=== PATIENT | female | born 1940 | race Caucasian/White ===

== ENCOUNTER 2024-12-02 11:04 | Outpatient (CLI) | payer MEDICARE, BC, SELFPAY ==
--- NOTE | 2024-12-02 11:14 | XR_ITS ---
FINAL REPORT CLINICAL HISTORY: Foot pain COMPARISON: None FINDINGS: RIGHT FOOT Three views demonstrate no acute fracture or dislocation. The joint spaces appear normal. No acute soft tissue abnormality is seen. IMPRESSION: No acute bony abnormality. Reviewed, Interpreted and Dictated by Miguelito Cardenas MD Transcribed by Zaira Rahman Authenticated and [facility][1]
--- NOTE | 2024-12-02 11:14 | XR_ITS ---
FINAL REPORT CLINICAL HISTORY: Foot pain COMPARISON: None FINDINGS: LEFT FOOT Three views demonstrate no acute fracture or dislocation. The joint spaces appear normal. No acute soft tissue abnormality is seen. IMPRESSION: No acute bony abnormality. Reviewed, Interpreted and Dictated by Miguelito Cardenas MD Transcribed by Zaira Rahman Authenticated and [facility] [place]
== END 2024-12-02 23:59 | disposition home or self-care (01) ==
LOC: RAD 11:10
PROVIDERS: PCP Nurse Practitioner Family; Visit Provider Nurse Practitioner
DX: M79.671 Pain in right foot (principal); M79.672 Pain in left foot
CPT/HCPCS: 73630